=== PATIENT | female | born 1975 | race Caucasian/White ===

== ENCOUNTER 2016-09-22 20:23 | Inpatient (IN) | payer BC ==
[~2016-09-22] VITALS: Ht 152.4 cm; Wt 72.7 kg
[2016-09-22 21:42] LABS: BASOPHILS 0.1 % (0-2); EOSINOPHILS 0.4 % (0-7); HEMATOCRIT 40.5 % (36.0-48.0); HEMOGLOBIN 13.3 g/dL (12-16); IMMATURE GRANULOCYTES 0.4 % (0-5); LYMPHOCYTES 14.1 % (15-50); MCH 30.4 pg (26.0-34.0); MCHC 32.8 g/dL (31.0-37.0); MCV 92.7 fL (80.0-100.0); MEAN PLATELET VOLUME 9.7 fL (7.4-10.4); MONOCYTES 4.4 % (2-11); NEUTROPHILS 80.6 % (40-80); PLATELET COUNT 339 10x3/uL (130-400); RBC 4.37 10x6/uL (4.00-5.40); RDW 12.7 % (11.5-14.5); WBC 14.4 10x3/uL (4.8-10.8)
[2016-09-22 21:50] LABS: APTT 23.8 SECONDS (22.8-39.4); INR 1.06 (0.85-1.17); PROTIME 13.7 SECONDS (11.6-15.0)
[2016-09-22 21:58] LABS: ALBUMIN 3.8 g/dL (3.4-5.0); ALKALINE PHOSPHATASE 99 U/L (46-116); ALT (SGPT) 19 U/L (10-68); BILIRUBIN - TOTAL 0.49 mg/dL (0.2-1.3); CALC OSMOLALITY 276 mosm/kg (275-300); CARBON DIOXIDE 25.4 mmol/L (21.0-32.0); CHLORIDE - SERUM 105 mmol/L (98-107); CREATININE - SERUM 0.7 mg/dL (0.6-1.3); GLUCOSE 96 mg/dL (74-106); POTASSIUM - SERUM 3.7 mmol/L (3.5-5.1); PROTEIN - SERUM 6.8 g/dL (6.4-8.2); SODIUM 140 mmol/L (136-145); UREA NITROGEN 7 mg/dL (7-18); eGFR NON AFRICAN AMERICAN > 90 mL/min (90-120)
[2016-09-22 23:11] VITALS: BP 117/89; Ht 152.4 cm; Wt 72.7 kg
[2016-09-23] MEDS ORDERED: PRAVACHOL40 MG PO (02:49)
[2016-09-23] MEDS ORDERED: TOPAMAX50 MG PO (02:51)
[2016-09-23] MEDS ORDERED: OMEPRAZOLE40 MG PO (02:51)
[2016-09-23] MEDS ORDERED: BREO ELLIPTA 11 EACH INH (02:52)
[2016-09-23] MEDS ORDERED: ADIPEX-P37.5 MG PO (02:53)
[2016-09-23 04:00] VITALS: BP 102/56
--- NOTE | 2016-09-23 07:15 | NUR ---
PATIENT RECEIVED ALERT IN LOW SPENCE POSITION. NO SIGNS OF DISTRESS NOTED. DENIES NEEDS. SIDE RAILS UP X2. BED IN LOW POSITION. CALL LIGHT IN REACH.
[2016-09-23 08:15] VITALS: BP 112/75
--- NOTE | 2016-09-23 09:15 | NUR ---
PATIENT ALERT IN BED. NO SIGNS OF DISTRESS NOTED. SCHEDULED MEDICATION ADMINISTERED. DILAUDID FINANCIAL SERVICE REPRESENTATIVE SET ACCORDING TO ORDERS. USE EXPLAINED. STATES UNDERSTANDING. DENIES NEEDS. SIDE RAILS UP X2. BED IN LOW POSITION. CALL LIGHT AND FINANCIAL SERVICE REPRESENTATIVE BUTTON IN REACH.
--- NOTE | 2016-09-23 11:20 | NUR ---
ALERT IN BED TALKING ON PHONE. NO SIGNS OF DISTRESS NOTED. SIDE RAILS UP X2. BED IN LOW POSITION. CALL LIGHT IN REACH.
[2016-09-23 12:31] VITALS: BP 119/76
--- NOTE | 2016-09-23 16:20 | NUR ---
ALERT IN BED RESTING QUIETLY. RESPIRATIONS EVEN AND UNLABORED. DENIES NEEDS. SIDE RAILS UP X2. BED IN LOW POSITION. CALL LIGHT AND PEDIATRIC IMMUNOLOGIST BUTTON IN REACH.
[2016-09-23 16:36] VITALS: BP 110/68
--- NOTE | 2016-09-23 19:20 | NUR ---
PT LYING IN BED TALKING WITH VISITOR, ASSESSMENT COMPLETED, NO ACUTE DISTRESS NOTED, DSG IN PLACE TO RLE, IV TO L FOREARM INFUSING, KANG DRAINING TO GRAVITY, DENIES NEEDS AT THIS TIME, SR'S UP X2, CL IN REACH WILL MONITOR
[2016-09-23 20:00] VITALS: BP 106/67
--- NOTE | 2016-09-23 20:56 | NUR ---
TOPAMAX GIVEN PER MAR, OCTAVIO WELL, DENIES FURTHER NEEDS, FALL PRECAUTIONS IN PLACE, CL IN REACH
--- NOTE | 2016-09-23 23:16 | NUR ---
RESTING WITH EYES CLOSED, NO DISTRESS NOTED, FALL PRECAUTIONS IN PLACE, CL IN REACH
[2016-09-24] VITALS: BP 115/70
[2016-09-24 04:00] VITALS: BP 114/77
--- NOTE | 2016-09-24 07:00 | NUR ---
PT REC'D FROM DILAN HERNADEZ. PREOP'D BY DILAN HERNADEZ. +2 PEDAL PULSES TO R FOOT. AAOX4. RATING CURRENT PAIN IN R LE 10/04. DILAUDID PET FEEDER INFUSING. BED LOW, CALL LIGHT IN REACH, DENIES NEEDS. CPOC.
--- NOTE | 2016-09-24 07:18 | NUR ---
PATIENT IS AWAKE, ALERT AND ORIENTED X'S 4. PATIENT DENIES NEEDS AT THIS TIME. PATIENT STATED SHE IS GOING FOR AN ORIF TODAY ON HER LEG. PATIENT HAS REAL ESTATE SALES MANAGER BUTTON IN HAND. CALL LIGHT IN REACH. PATIENT IS PLEASENT. NO SIGNS OF DISTRESS NOTED. PATIENT DENIES NEEDS. BED IN LOWEST POSITION, CALL LIGHT IN REACH. BED RAILS UP X'S 2.
[2016-09-24 08:42] VITALS: BP 110/67
--- NOTE | 2016-09-24 09:56 | NUR ---
consents did not include right or left leg, director of or notified, dr notified, dr says proceed, has xray confirm right tibial plateau at 0909
--- NOTE | 2016-09-24 11:14 | NUR ---
REPORT REC'D FROM DILAN AGARWAL. ROOM READY FOR PT.
[2016-09-24 11:34] VITALS: BP 108/73
--- NOTE | 2016-09-24 11:38 | NUR ---
PT REC'D BACK TO ROOM FROM SURGERY. AAOX4. NO COMPLAINTS OF PAIN. STILL DROWSY, BUT EASILY AROUSED. VSS. +2 PEDAL PULSE TO R FOOT. DRESSING TO R LE CDI. ICE TO AFFECTED AREA. SCD APPLIED TO LLE. RECONNECTED TO IVF AND DILAUDID CORONARY CLINICAL SPECIALIST. BED LOW, CALL LIGHT IN REACH, DENIES NEEDS. CPOC.
--- NOTE | 2016-09-24 13:00 | NUR ---
CHECKING IN ON PT FOR PEDAL PULSE CHECK. DRESSING WITH BLOOD AND ON HOMAR WELL. HOMAR CHANGED AND DIPOSABLE PLACED UNDER BLEEDING AREA. 2 ICE PACKS APPLIED. WILL CONTINUE TO MONITOR.
--- NOTE | 2016-09-24 15:26 | NUR ---
Patient Name: DARIN WEINSTEIN Admission Status: ER Accout number: [id number] Admission Date: 09-22-2016 : 1975 Admission Diagnosis:DISPLACED BICONDYLAR FRACTURE OF RIGHT TIBIA, INIT Attending: BREE Current LOS: 2 Anticipated DC Date: 09-27-2016 Planned Disposition: Home Primary Insurance: [employer] O Discharge Planning Comments: CM MET WITH PATIENT REGARDING D/C NEEDS AND PLANS. PATIENT STATED SHE LIVES WITH HER SPOUSE (SOFIYA) AND HE WILL DRIVE HER HOME AT DISCHARGE. PATIENT STATED THERE ARE 4 STEPS TO ENTER HOME AND NO STAIRS INSIDE. PATIENT IS INDEPENDENT WITH HER CARE AND HAS NO DME AT HOME. PATIENTS PCP IS DR. HAYNES AND PHARMACY IS [facility] IN [place]. PATIENT REFUSING HOME HEALTH NEEDS AT THIS TIME. CM WILL CONTINUE TO FOLLOW PATIENT WITH D/C NEEDS AND PLANS. PCP DR[facility] IN [place]- [phone] REECE CEBALLOS ([facility] [place] [phone] Integrity Manager: Ariana Perera Is the patient Alert and Oriented? Yes 0 * How many steps to enter\exit or inside your home? 4 RAILS 0 * PCP DR. OROZCO 0 * Pharmacy [facility] IN [place] 0 * Preadmission Environment Home with Family 0 * ADLs Independent 0 * Equipment None 0 * List name and contact numbers for known caregivers / representatives who currently or will assist patient after discharge: REECE CEBALLOS ([facility] [place]) [phone] 0 * Community resources currently utilized None 0 * Additional services required to return to the preadmission environment? Yes 0 * Can the patient safely return to the preadmission environment? Yes 0 * Has this patient been hospitalized within the prior 30 days at any hospital? No 0 Grand Total: 0
[2016-09-24 16:45] VITALS: BP 107/66
--- NOTE | 2016-09-24 18:31 | NUR ---
PT RESTING IN BED WATCHING TV. NO COMPLAINTS OF PAIN. BED LOW, CALL LIGHT IN REACH, DENIES NEEDS. CPOC.
[2016-09-24 20:00] VITALS: BP 100/57
--- NOTE | 2016-09-25 01:50 | NUR ---
1930) REC'D IN BED EYES CLOSED RESP' DEEP AND EVEN. RT. FOOT ELEVATED/1+ EDEMA RT. FOOT AND ANKLE PEDAL PULSE PRESENT.WILL CONTINUE TO MONITOR FOR ANY CHGES. AND FOLLOW CURRENT PLAN OF CARE.
[2016-09-25 04:00] VITALS: BP 121/76
[2016-09-25 05:29] LABS: BASOPHILS 0 % (0-2); EOSINOPHILS 0.1 % (0-7); HEMATOCRIT 33.5 % (36.0-48.0); IMMATURE GRANULOCYTES 0.3 % (0-5); MCH 30.5 pg (26.0-34.0); MCHC 32.8 g/dL (31.0-37.0); MCV 92.8 fL (80.0-100.0); MONOCYTES 9.7 % (2-11); NEUTROPHILS 71.9 % (40-80); PLATELET COUNT 300 10x3/uL (130-400); RBC 3.61 10x6/uL (4.00-5.40); RDW 12.9 % (11.5-14.5); WBC 13.5 10x3/uL (4.8-10.8)
[2016-09-25 05:38] LABS: CALC OSMOLALITY 277 mosm/kg (275-300); CALCIUM 8.3 mg/dL (8.5-10.1); CARBON DIOXIDE 25.5 mmol/L (21.0-32.0); CHLORIDE - SERUM 107 mmol/L (98-107); CREATININE - SERUM 0.6 mg/dL (0.6-1.3); GLUCOSE 138 mg/dL (74-106); POTASSIUM - SERUM 3.6 mmol/L (3.5-5.1); SODIUM 140 mmol/L (136-145); UREA NITROGEN 3 mg/dL (7-18); eGFR NON AFRICAN AMERICAN > 90 mL/min (90-120)
--- NOTE | 2016-09-25 08:30 | NUR ---
ASSESSMENT COMPLETE. IV TO L FA PATENT. NS INFUSING AT 75 CC/HR VIA PUMP. COMMUNITY LIAISON DILAUDID 0.2-10-4 IN USE FOR PAIN CONTROL. KEVIN WRAP DRESSING INTACT TO RLE. R PEDAL EDEMA NOTED. KANG PATENT DRAINING YELLOW URINE.
[2016-09-25 08:35] VITALS: BP 113/61
--- NOTE | 2016-09-25 11:30 | NUR ---
SITTING UP IN CHAIR. CALL LIGHT WITHIN REACH.
[2016-09-25 12:01] VITALS: BP 108/57
--- NOTE | 2016-09-25 14:42 | NUR ---
CONTINUES SITTING UP IN CHAIR. STATES SHE IS MORE COMFORTABLE SITTING UP. CALL LIGHT WITHIN REACH. INSTRUCTED TO NOTIFY STAFF WHEN READY TO GET BACK IN BED.
[2016-09-25 16:13] VITALS: BP 101/66
--- NOTE | 2016-09-25 17:41 | NUR ---
NO CHANGES NOTED AT PRESENT.
[2016-09-25 19:00] VITALS: BP 108/64
[2016-09-26] VITALS: BP 111/64
--- NOTE | 2016-09-26 01:48 | NUR ---
REC'D PATIENT LYING IN BED. ALERT AND ORIENTED X4. DENIED PAIN AT THIS TIME. DENIED FURTHER NEEDS AT THIS TIME. INSTRUCTED TO CALL IF NEEDED ANYTHING. WILL ADMIN PM/AM MEDS PRESCRIBED. WILL CONT TO MONITOR. AT 2100 HAD TO RECITE IV, IT IS NOW TO THE LEFT FOREARM, PATENT, FLUIDS WERE RESTARTED. WILL CONT TO MONTIOR THROUGHOUT THE NIGHT. BED LOW, LOCKED, CALL LIGHT IN REACH.
[2016-09-26 04:00] VITALS: BP 105/64
[2016-09-26 06:02] LABS: HEMATOCRIT 32.7 % (36.0-48.0); HEMOGLOBIN 10.9 g/dL (12-16)
--- NOTE | 2016-09-26 07:45 | NUR ---
AM ROUNDS - PT IS IN BED AND AWAKE. KANG DRAINING CLEAR YELLOW. PT HAS AN IV TO LEFT FA, NS AT 30CC/HR. BED AT LOWEST POSITION, SIDE RAILS UP X2, CALL GUADARRAMA IN USE/REACH. NO NEEDS AT THIS TIME. WILL CONTINUE TO MONITOR
[2016-09-26 08:14] VITALS: BP 106/59
--- NOTE | 2016-09-26 10:44 | NUR ---
MORNING MEDICATION GIVEN. NO NEEDS AT THIS TIME. WILL CONTINUE TO MONITOR
[2016-09-26 13:10] VITALS: BP 108/70
--- NOTE | 2016-09-26 19:30 | NUR ---
RECIEVED SHIFT REPORT. PT IS LYING IN BED. ALERT AND ORIENTED AND ABLE TO VERBALIZE NEEDS. IV IS PATENT AND FLUIDS ARE RUNNING PER ORDER. KANG IS DRAINING URINE BY GRAVITY. PT HAS AMBULATED WITH PHYSICAL THERAPY. DRESSING TO RIGHT KNEE C/D/I. PT STATES PAIN IS 6/10 WITH FURRIER SHOP SUPERVISOR PUMP. NO NEEDS ARE VERBALIZED AT THIS TIME. VISITOR IS AT THE BEDSIDE. SIDE RAILS ARE UP X 2. BED IS IN LOWEST POSITION. CALL LIGHT IS WITHIN REACH.
[2016-09-26 20:00] VITALS: BP 117/68
--- NOTE | 2016-09-26 20:58 | NUR ---
SHIFT ASSESSMENT COMPLETED. NIGHT MEDS GIVEN WITH NO PROBLEMS. NO NEEDS ARE VOICED. VISITOR AT BEDSIDE. WILL MONITOR. SIDE RAILS X 2. BED LOW. CALL LIGHT IN REACH.
[2016-09-27] VITALS: BP 103/61
[2016-09-27 04:00] VITALS: BP 97/63
[2016-09-27 05:54] LABS: HEMATOCRIT 33.5 % (36.0-48.0); HEMOGLOBIN 11.1 g/dL (12-16)
--- NOTE | 2016-09-27 07:10 | NUR ---
PT REC'D FROM DILAN ANDREWS. JILLIAN ALTAMIRANO, AT BEDSIDE DISCUSSING DISCHARGE. NO QUESTIONS OR CONCERNS VOICED AT THIS TIME. WILL CHANGE DRESSING TO R KNEE AND PULL KANG. BED LOW, CALL LIGHT IN REACH, DENIES NEEDS. CPOC.
--- NOTE | 2016-09-27 08:00 | NUR ---
PATIENT IS AWAKE, ALERT AND ORIENTED X'S 4. RESPIRATIONS ARE EVEN AND UNLABORED ON ROOM AIR. NO SIGNS OF DISTRESS NOTED. BED IN LOWEST POSITION, CALL LIGHT IN REACH.
[2016-09-27] MEDS ORDERED: ASPIRIN81 MG PO (08:08)
[2016-09-27] MEDS ORDERED: DILAUDID2 MG PO (08:09)
[2016-09-27 09:28] VITALS: BP 107/58
--- NOTE | 2016-09-27 10:34 | NUR ---
CM REASSESSMENT NOTE: PATIENT IS DISCHARGING HOME TODAY/DENIED HOME HEALTH OR ANY OTHER NEEDS. WALKER WILL BE DELIVERED TO HOSPITAL BEFORE DISCHARGE FROM [facility].
[2016-09-27 12:16] VITALS: BP 101/57
--- NOTE | 2016-09-27 12:28 | NUR ---
DISCHARGE INSTRUCTIONS DISCUSSED AT THIS TIME. NO QUESTIONS OR CONCERNS VOICED. DISCUSSED WHEN F/U APPOINTMENTS WOULD BE AND NUMBERS TO CALL IF THEY NEEDED TO BE CHANGED. DRESSING TO R LE CHANGED. APPROXIMATELY 27 [place] TO INCISION SITE. SITE FREE OF REDNESS AND SWELLING. APPROXIMATE WELL. NEW AQUACEL DRESSING APPLIED. PIV TO L FA DC'D WITH CATHETER INTACT. KANG CATHETER DC'D WITH BALLOON INTACT WELL. ESCORTED OUT VIA WC.
== END 2016-09-27 12:30 | disposition home or self-care (01) | DRG 489 ==
LOC: D.ER 20:23 → D.MS 21:45
PROVIDERS: Nurse Practitioner Acute Care; ADMIT Orthopaedic Surgery
PROC: 0QSG04Z Reposition Right Tibia with Internal Fixation Device, Open Approach (ICD-10-PCS; principal; 2016-09-24 08:00)
PROC: 0SQC0ZZ Repair Right Knee Joint, Open Approach (ICD-10-PCS; principal; 2016-09-24 08:00)
DX: S82.141A Displaced bicondylar fracture of right tibia, initial encounter for closed fracture (principal); S82.831A Other fracture of upper and lower end of right fibula, initial encounter for closed fracture; Y09 Assault by unspecified means; K21.9 Gastro-esophageal reflux disease without esophagitis; F17.200 Nicotine dependence, unspecified, uncomplicated